=== PATIENT | male | born 1965 | race Caucasian/White ===

== ENCOUNTER 2024-03-31 11:09 | Emergency (ER) | payer OTHER, SELFPAY ==
--- NOTE | ~2024-03-31 | XR_ITS ---
EXAMINATION: XR chest 2V DATE: 03/31/2024 11:40 INDICATION: Chest pain, lightheadedness and shortness of breath. TECHNIQUE: PA and lateral views of the chest were obtained. COMPARISON: None FINDINGS: Mild elevation the left hemidiaphragm. The lungs are clear with no focal airspace opacities, pulmonar y edema, pleural effusion or pneumothorax. The cardiomediastinal silhouette is normal. Chest wall def ormity with relatively decreased size of the left fourth and right fifth ribs. IMPRESSION: 1. No acute cardiopulmonary disease. Reviewed, dictated and finalized at location A. ILLERY MANAGER
[2024-03-31 11:15] VITALS: BP 126/85; PULSE 82; RESP 18; TEMP 36.5; O2SAT 97
--- NOTE | 2024-03-31 11:23 | ECG_ITS ---
Test Date: 2024-03-31 11:23:33 Measurements Intervals [place] Rate: 81 P: 28 NH: 154 QRS: 12 QRSD: 93 T: -14 QT: 372 QTc: 434 Interpretive Statements SINUS RHYTHM WITH SINUS ARRHYTHMIA VOLTAGE CRITERIA FOR LVH CONSIDER INFERIOR INFARCT, AGE INDETERMINATE ABNORMAL ECG No previous ECG available for comparison Electronically Signed On 03-31-2024 11:48:11 STADIUM ATTENDANT by Cr Mandujano D.O.
[2024-03-31 11:31] VITALS: BP 130/91; PULSE 82; RESP 19; O2SAT 99
[2024-03-31 11:39] LABS: Basophils Percent Auto 0.3 % (0.2-1.2); Eosinophils Absolute Auto 0.1 K/mm3 (0-0.3); Eosinophils Percent Auto 1.4 % (0-4.4); Hematocrit 45.1 % (42.0-52.0); Immature Granulocyte Absolute 0.03 K/mm3 (0.00-0.031); Immature Granulocyte Percent A 0.3 % (0-0.5); Lymphocytes Absolute Auto 1.88 K/mm3 (0.9-3.2); Lymphocytes Percent Auto 19.7 % (18.3-44.2); Mean Corpuscular HGB Conc 33.3 g/dl (32-36); Mean Corpuscular Hemoglobin 29.9 pg (26-34); Mean Platelet Volume 11.2 fl (7.4-10.4); Monocytes Absolute Auto 0.8 K/mm3 (0.1-0.6); Monocytes Percent Auto 8.1 % (2.6-8.5); Neutrophils Absolute Auto 6.7 K/mm3 (1.3-6.7); Neutrophils Percent Auto 70.2 % (45.5-73.1); Platelet Count Result 167 k/mm3 (150-375); Red Blood Count 5.01 M/mm3 (4.6-6.20); Red Cell Distribution Width 13.3 % (11.5-14.5); White Blood Count 9.6 K/mm3 (4.5-10.0)
[2024-03-31 11:46] LABS: Alanine Aminotransferase 23 U/L (6-50); Albumin Level 4.4 g/dL (3.5-5.1); Alkaline Phosphatase 81 U/L (38-126); Anion Gap 4 mmol/L (4-12); Aspartate Amino Transferase 25 U/L (17-59); Bilirubin,Total 0.8 mg/dL (0.2-1.3); Blood Urea Nitrogen 15 mg/dL (9-20); Calcium 8.9 mg/dL (8.4-10.2); Carbon Dioxide 27 mmol/L (22-30); Chloride 107 mmol/L (98-107); Estimated CRCL calculation 108 ml/min; Estimated Glomerular Filt Rate > 60; Glucose 81 mg/dL (65-110); INR 1.1; Lipase 117 U/L (23-300); Potassium 4.1 mmol/L (3.4-5.0); Prothrombin Time 14.2 Seconds (11.1-14.7); Sodium 138 mmol/L (137-145)
[2024-03-31 11:47] LABS: Partial Thromboplastin Time 29.2 Seconds (22.3-36.8)
[2024-03-31 11:58] LABS: Troponin I < 0.012 ng/mL (0.000-0.034)
[2024-03-31 12:30] LABS: NT Pro B Type Natriuretic Pept 50 pg/mL (19.9-100)
[2024-03-31 12:31] LABS: D Dimer < 0.27 ug/mL (<0.48)
[2024-03-31 12:59] LABS: Influenza A QL RT-PCR Negative (Negative); Influenza B QL RT-PCR Negative (Negative); RSV RNA, RT-PCR Negative (Negative); SARS-CoV-2 RNA PCR Negative (Negative)
--- NOTE | 2024-03-31 14:27 | ED_ITS ---
HPI - General Adult General Chief complaint: Chest Pain Stated complaint: Lighheaded, SOB, Tachycardia, Chest Pain Time Seen by Provider: 03/31/24 11:52 History of Present Illness HPI narrative: This is a 58-year-old male presenting ED with a chief complaint of lightheadedness. Patient was at work going up and downstairs when he became lightheaded. Once he became dizzy he developed a sharp pain was stabbing in the center of his chest. It is nonradiating. His symptoms lasted for approximately 15 minutes before resolving. There is no associated diaphoresis or vomiting. No history of CAD. No other symptoms. Patient recently was started on Flomax and was told that that could cause dizziness and lightheadedness. Related Data Allergies Allergy/AdvReac Type Severity Reaction Status Date / Time chlorpheniramine AdvReac Nausea and Verified 03/31/24 11:20 [From Novahistine DH] Vomiting codeine [From Novahistine DH] AdvReac Nausea and Verified 03/31/24 11:20 Vomiting dihydrocodeine AdvReac Nausea and Verified 03/31/24 11:20 [From Novahistine DH] Vomiting phenylephrine AdvReac Nausea and Verified 03/31/24 11:20 [From Novahistine DH] Vomiting pseudoephedrine AdvReac Nausea and Verified 03/31/24 11:20 [From Novahistine DH] Vomiting Exam Narrative: APPEARANCE: No apparent distress. Head: atraumatic. EYES: EOMI, NOSE: Atraumatic NECK: Trachea midline RESPIRATORY: No increased rate of breathing Clear to auscultation CARDIOVASCULAR: RRR, no peripheral edema ABDOMINAL: Non-distended soft nontender MUSCULOSKELETAl: No obvious deformities NEURO: Alert. Moving 4/4 extremities SKIN:: Warm, dry. Normal color PSYCHIATRIC: Normal affect Course Vital Signs Vital signs: Vital Signs Temperature 97.7 F 03/31/24 11:15 Pulse Rate 82 03/31/24 11:15 Respiratory Rate 18 03/31/24 11:15 Blood Pressure 126/85 03/31/24 11:15 Pulse Oximetry 97 03/31/24 11:15 Oxygen Delivery Room Air 03/31/24 11:15 Temperature 97.7 F 03/31/24 11:15 Pulse Rate 82 03/31/24 11:31 Respiratory Rate 19 03/31/24 11:31 Blood Pressure 130/91 H 03/31/24 11:31 Pulse Oximetry 99 03/31/24 11:31 Oxygen Delivery Room Air 03/31/24 11:20 Medical Decision Making [facility] Narrative Medical decision making narrative: -Course: 58-year-old male presenting with a brief episode of lightheadedness when going up a ladder. Symptoms have all resolved and is now resting comfortably in bed vital signs. His workup here including chest x-ray, EKG, troponin x2 were negative. Dimer and BNP negative. possible the patient's lightheadedness was due to his Flomax. patient was given IV fluids and his symptoms are not improving he can walk without any lightheadedness. I discussed the patient's results with think that he is low risk. Patient will be discharged follow-up with his primary care physician -DDX includes but is not limited to: dehydration, ACS, PE, pneumonia, CHF, presyncope, medication side effect -Co-morbidities complicating care: hypertension, BPH -Independent interpretation of studies: labs and imaging reviewed Independent EKG interpretation: Rhythm [sinus], Rate [81], [place] -[normal], [place] -[normal], QRS [narrow], QTC [normal], T waves -[negative for concerning inversions], ST Segments - [Negative for concerning elevations] Final interpretations: [Normal Sinus Rhythm] -Shared decision making / Disposition:discharged. Vital Signs Vital Signs: Vital Signs Temperature 97.7 F 03/31/24 11:15 Pulse Rate 82 03/31/24 11:15 Respiratory Rate 18 03/31/24 11:15 Blood Pressure 126/85 03/31/24 11:15 Pulse Oximetry 97 03/31/24 11:15 Oxygen Delivery Room Air 03/31/24 11:15 Temperature 97.7 F 03/31/24 11:15 Pulse Rate 82 03/31/24 11:31 Respiratory Rate 19 03/31/24 11:31 Blood Pressure 130/91 H 03/31/24 11:31 Pulse Oximetry 99 03/31/24 11:31 Oxygen Delivery Room Air 03/31/24 11:20 Lab Data 03/31/24 11:31 03/31/24 11:31 Labs: Lab Results 03/31/24 03/31/24 Range/Units 11:31 12:15 WBC 9.6 (4.5-10.0) K/mm3 RBC 5.01 (4.6-6.20) M/mm3 Hgb 15.0 (14.0-18.0) g/dL Hct 45.1 (42.0-52.0) % MCV 90.0 (80-100) fl MCH 29.9 (26-34) pg MCHC 33.3 (32-36) g/dl RDW 13.3 (11.5-14.5) % Plt Count 167 (150-375) k/mm3 MPV 11.2 H (7.4-10.4) fl Immature Gran % (Auto) 0.3 (0-0.5) % Neut % (Auto) 70.2 (45.5-73.1) % Lymph % (Auto) 19.7 (18.3-44.2) % Stark % (Auto) 8.1 (2.6-8.5) % Eos % (Auto) 1.4 (0-4.4) % Baso % (Auto) 0.3 (0.2-1.2) % Lymph # (Auto) 1.88 (0.9-3.2) K/mm3 Stark # (Auto) 0.8 H (0.1-0.6) K/mm3 Eos # (Auto) 0.1 (0-0.3) K/mm3 Baso # (Auto) 0.0 (0.0-0.1) K/mm3 Abs Immat Gran (auto) 0.03 (0.00-0.031) K/mm3 Absolute Neuts (auto) 6.7 (1.3-6.7) K/mm3 Absolute Nucleated RBC 0.000 (0.0-0.012) K/mm3 Nucleated RBC % 0.0 (0.0-0.2) % PT 14.2 (11.1-14.7) Seconds INR 1.1 APTT 29.2 (22.3-36.8) Seconds D-Dimer < 0.27 (<0.48) ug/mL Sodium 138 (137-145) mmol/L Potassium 4.1 (3.4-5.0) mmol/L Chloride 107 (98-107) mmol/L Carbon Dioxide 27 (22-30) mmol/L Anion Gap 4 (4-12) mmol/L BUN 15 (9-20) mg/dL Creatinine 0.90 (0.7-1.3) mg/dL Estim Creat Clear Calc 108 ml/min Estimated GFR > 60 (59 - ) Glucose 81 (65-110) mg/dL Calcium 8.9 (8.4-10.2) mg/dL Total Bilirubin 0.8 (0.2-1.3) mg/dL AST 25 (17-59) U/L ALT 23 (6-50) U/L Alkaline Phosphatase 81 (38-126) U/L Troponin I < 0.012 (0.000-0.034) ng/mL NT-Pro-B Natriuret Pep 50 (19.9-100) pg/mL Total Protein 8.0 (6.3-8.2) g/dL Albumin 4.4 (3.5-5.1) g/dL Lipase 117 (23-300) U/L Influenza A (RT-PCR) Negative (Negative) Influenza B (RT-PCR) Negative (Negative) RSV (RT-PCR) Negative (Negative) SARS-CoV-2 RNA (RT-PCR) Negative (Negative) Discharge Plan Discharge Clinical Impression: Light headedness, Atypical chest pain, Drug side effects Patient Disposition: Home, Self-Care Instructions: Antibiotic Form, Lightheadedness (ED) Additional Instructions: please follow-up with your primary care physician for further management. your workup here in the emergency department is reassuring. Your primary care physician may refer you to a powerhouse laborer for further workup. If you develop chest pain lightheadedness loss of consciousness or feel like her condition is getting worse please return to the ED for re-evaluation. Follow-up/Referrals: UNKNOWN,DOCTOR [Primary Care Provider] - Quality HEART score for chest pain patients History: slightly suspicious ECG: non specific repolarization disturbance/LBTB/PM Age: > 45 and < 65 years Risk factors: 1 or 2 risk factors Troponin: < or = to 1x normal limit Heart score: 3
--- NOTE | 2024-03-31 14:34 | ECG_ITS ---
Test Date: 2024-03-31 14:39:00 Measurements Intervals [place] Rate: 78 P: 26 VT: 164 QRS: 11 QRSD: 95 T: -16 QT: 395 QTc: 453 Interpretive Statements SINUS RHYTHM INCOMPLETE RIGHT BUNDLE BRANCH BLOCK LEFT VENTRICULAR HYPERTROPHY CONSIDER INFERIOR INFARCT, AGE INDETERMINATE BASELINE ARTIFACT- I, II, III, AVR, AVL, AVF, V1-V6 ABNORMAL ECG Compared to ECG 03/31/2024 11:23:33 NO SIGNIFICANT CHANGE Electronically Signed On 03-31-2024 19:22:15 SOURCING ENGINEER by Cr Mandujano D.O.
[2024-03-31 14:54] VITALS: BP 115/88; PULSE 82; RESP 18; O2SAT 100
[2024-03-31 15:03] LABS: Troponin I < 0.012 ng/mL (0.000-0.034)
== END 2024-03-31 15:18 | disposition home or self-care (01) ==
PROVIDERS: Emergency Provider Emergency Medicine
DX: R42 Dizziness and giddiness (principal); R07.89 Other chest pain; T44.6X5A Adverse effect of alpha-adrenoreceptor antagonists, initial encounter; Z20.822 Contact with and (suspected) exposure to COVID-19
CPT/HCPCS: 36415; 71046; 80053; 83690; 83880; 84484; 85025; 85380; 85610; 85730; 87637; 93005; 99284

== ENCOUNTER 2024-06-19 16:19 | Outpatient (CLI) | payer OTHER, SELFPAY ==
--- NOTE | ~2024-06-19 | XR_ITS ---
EXAM: XR knee LT 3V DATE: 06/19/2024 16:37 HISTORY: Unilateral primary osteoarthritis, left knee . COMPARISON: None available. FINDINGS: Normal mineralization. No fracture or dislocation. No lytic or blastic lesion. Mild medial and lateral joint space narrowing. Mild tricompartmental osteophytosis. No erosion or periosteal aaron nge. Soft tissues within normal limits. IMPRESSION: Mild tricompartmental left knee osteoarthritis. Reviewed, dictated and finalized at location K. WORKER
== END 2024-06-19 16:20 | disposition home or self-care (01) ==
LOC: MICIMG 16:22
PROVIDERS: PCP Physician Assistant; Visit Provider Physician Assistant
DX: M17.12 Unilateral primary osteoarthritis, left knee (principal)
CPT/HCPCS: 73562